=== PATIENT | male | born 1965 | race Caucasian/White ===

== ENCOUNTER 2018-11-11 13:15 | Day surgery (SDC) | payer MEDICAID ==
[~2018-11-11] VITALS: Ht 167.6 cm; Wt 64.5 kg
[~2018-11-11 13:15] MED LIST: GLIP5 PO; LISI-661 PO; METF-960 PO; SODIUM CHLORIDE 0.9% 1,000 ML IV ONE
[2018-11-11] MEDS ORDERED: PROPOFOL 1% 20 ML VIAL IVP ONE (13:16)
[2018-11-11] MEDS ORDERED: LIDOCAINE/PF 2% 5 ML VIAL IM ONE (13:16)
[2018-11-11 14:01] LABS: GLUCOMETER DEV NAME(LOC) SDS.; GLUCOSE,POINT OF CARE 104 MG/DL (70-110)
[2018-11-11] MEDS ORDERED: FentaNYL CITRATE-PF 100 MCG/2 ML VIAL IVP PRN (16:00)
[2018-11-11] MEDS ORDERED: HYDROmorphone 2 MG/ML SYRINGE IVP PRN (16:00)
[2018-11-11] MEDS ORDERED: MEPERIDINE-PF 25 MG/ML VIAL IVP PRN (16:00)
[2018-11-11] MEDS ORDERED: OXYGEN THERAPY IH SCH (20:00)
== END 2018-11-11 16:10 | disposition home or self-care (01) ==
LOC: SURGERY 13:15
PROVIDERS: ATTEND Internal Medicine Gastroenterology
DX: K29.30 Chronic superficial gastritis without bleeding (principal); K64.1 Second degree hemorrhoids; I10 Essential (primary) hypertension; E11.9 Type 2 diabetes mellitus without complications; Z87.891 Personal history of nicotine dependence; Z87.01 Personal history of pneumonia (recurrent); Z79.899 Other long term (current) drug therapy; Z98.890 Other specified postprocedural states
CPT/HCPCS: 43239; 45378; 82962; 88305; 88312; 88313; C1769; J2704; J3490; J7030

== ENCOUNTER 2022-04-25 06:45 | Day surgery (SDC) | payer MEDICAID ==
[~2022-04-25] VITALS: Ht 167.6 cm; Wt 77.2 kg
[~2022-04-25 06:45] MED LIST changes: -GLIP5 PO; +GLIP5TAB12 PO; -LISI-661 PO; +LISI-893 PO; +METF-1211 PO; -METF-960 PO; -SODIUM CHLORIDE 0.9% 1,000 ML IV ONE; +SODIUM CHLORIDE 0.9% 1,000 ML ONE
[2022-04-25] MEDS ORDERED: LIDOCAINE/PF 2% 5 ML VIAL IM ONE (06:46)
[2022-04-25] MEDS ORDERED: PROPOFOL 1% 20 ML VIAL IVP ONE (06:46)
[2022-04-25] MEDS ORDERED: SODIUM CHLORIDE 0.9% 1,000 ML IV ONE (07:00)
[2022-04-25 07:17] LABS: COVID AG,FIA SOURCE NASAL SWAB
[2022-04-25] MEDS ORDERED: OMEG10005 PO (08:15)
[2022-04-25] MEDS ORDERED: HYDR5TAB8 PO (08:15)
[2022-04-25] MEDS ORDERED: FERR325T27 PO (08:15)
[2022-04-25 08:16] LABS: GLUCOMETER DEV NAME(LOC) SDS.; GLUCOSE,POINT OF CARE 94 MG/DL (70-110)
[2022-04-25] MEDS ORDERED: ASPI-1450 PO (08:16)
[2022-04-25] MEDS ORDERED: ESCI-8 PO (08:16)
== END 2022-04-25 10:50 | disposition home or self-care (01) ==
LOC: SURGERY 06:45
PROVIDERS: ATTEND Internal Medicine Gastroenterology
DX: K22.70 Barrett's esophagus without dysplasia (principal); K44.9 Diaphragmatic hernia without obstruction or gangrene; K29.70 Gastritis, unspecified, without bleeding; I12.9 Hypertensive chronic kidney disease with stage 1 through stage 4 chronic kidney disease, or unspecified chronic kidney disease; F32.A Depression, unspecified; N18.9 Chronic kidney disease, unspecified; K29.80 Duodenitis without bleeding; Z20.822 Contact with and (suspected) exposure to COVID-19; Z79.899 Other long term (current) drug therapy
CPT/HCPCS: 43239; 87426; 82962; C1769; J2704; J3490; J7030; C9803; 88305